=== PATIENT | female | born 1960 | race Caucasian/White ===

== ENCOUNTER → 2024-12-19 | Outpatient (CLI) | payer MEDICARE, MEDICAID, SELFPAY ==
--- NOTE | 2024-12-19 08:33 | XR_ITS ---
Examination: Hand, left 3 views Technique: Hand AP, oblique, lateral 3 views Date and time of exam: December 11, 2024 0942 hours INDICATIONS: Patient fell 2 days ago with injury to the hand, hand pain wrist pain. FINDINGS: Acute intra-articular fractures distal radial metaphysis, comminuted Sclerosis of the lunate with old appearing fragmentation of the lunate No foreign body Soft tissue swelling dorsum of the wrist IMPRESSION: Acute comminuted intra-articular fractures distal radial metaphysis with mild impaction Fractures of the lunate, consider wrist CT follow-up to assess the lunate fractures
--- NOTE | 2024-12-19 08:33 | XR_ITS ---
Examination: Wrist, left 3 views Technique: Wrist AP, oblique, lateral 3 views Date and time of exam: December 19, 2024 0942 hours INDICATIONS: Patient fell today with intravenous, wrist pain. FINDINGS: Acute comminuted intra-articular fractures distal radial metaphysis with mild impaction Fragmentation of the lunate which may be acute IMPRESSION: Acute comminuted fractures distal radial metaphysis Recommend CT examination follow-up to assess fractures of the lunate
== END | disposition home or self-care (01) ==
PROVIDERS: PCP Physician Assistant; Referring Provider Physician Assistant; Visit Provider Physician Assistant
DX: S52.92XA Unspecified fracture of left forearm, initial encounter for closed fracture (principal); S62.122A Displaced fracture of lunate [semilunar], left wrist, initial encounter for closed fracture; W19.XXXA Unspecified fall, initial encounter
CPT/HCPCS: 73110; 73130

== ENCOUNTER → 2025-01-21 | Outpatient (CLI) | payer MEDICARE, MEDICAID, SELFPAY ==
--- NOTE | 2025-01-21 10:38 | XR_ITS ---
Examination: Wrist, left 3 views Technique: Wrist AP, oblique, lateral 3 views Date and time of exam: January 21, 2025 1042 hours INDICATIONS: Acute fractures distal radius December 19, 2024 FINDINGS: Subacute fractures distal radial metaphysis again noted There is now interval 3 mm offset of the radial styloid portion of the wrist fracture Deformed lunate IMPRESSION: There is now interval 3 mm offset of the radial styloid portion of the wrist fracture
--- NOTE | 2025-01-21 10:38 | XR_ITS ---
Examination: Hand, left 3 views Technique: Hand AP, oblique, lateral 3 views Date and time of exam: January 21, 2025 1042 hours INDICATIONS: Left hand and wrist pain after falling one month ago. Acute fractures distal radius on wrist films December 19, 2024 FINDINGS: Subacute fractures distal radius including through the radial styloid The radial styloid fracture is now mildly displaced 3 mm compared to the December 19, 2024 exam IMPRESSION: There is interval mild displacement of the distal radial fracture through the radial styloid compared to the December 19, 2024 exam
== END | disposition home or self-care (01) ==
PROVIDERS: PCP Physician Assistant; Referring Provider Physician Assistant; Visit Provider Physician Assistant
DX: S52.502A Unspecified fracture of the lower end of left radius, initial encounter for closed fracture (principal); W19.XXXA Unspecified fall, initial encounter
CPT/HCPCS: 73110; 73130